=== PATIENT | female | born 2000 | race Caucasian/White ===

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

== ENCOUNTER 2022-06-14 16:06 | Emergency (ER) | payer OTHER, SELFPAY ==
--- NOTE | 2022-06-14 16:13 | ED.URI ---
HPI - URI/Sore Throat General Chief Complaint: Upper Respiratory Infection Stated Complaint: Sore Throat Time Seen by Provider: 06/14/22 16:13 Source: patient and RN notes reviewed History of Present Illness HPI Narrative: patient is a 22-year-old female who presents to urgent care with complaints of sore throat and swollen glands. Patient states that she had a mild sore throat and then ate Twix bar and was concerned about it having peanuts. Patient denies any difficulty swallowing, breathing or chest tightness. Patient denies any recent fevers. No other acute complaints. No acute distress noted. Patient aware of care. Some parts of this dictation were generated by voice recognition software and may contain typographical and/or grammatical inaccuracies. Related Data Home Medications Medication Instructions Recorded Confirmed norgestimate 0.25 mg-ethinyl 1 tablet PO DAILY 06/23/21 06/14/22 estradiol 35 mcg tablet (Estarylla) Allergies Allergy/AdvReac Type Severity Reaction Status Date / Time amoxicillin Allergy Unknown HIVES Verified 06/14/22 16:30 peanut Allergy Unknown SHORTNESS Verified 06/14/22 16:30 OF BREATH Penicillins Allergy Hives Verified 06/14/22 16:30 Review of Systems Review of Systems: CONSTITUTIONAL: Denies fever, chills, or sweats. EYES: Denies visual changes, redness, or discharge. ENT: Denies rhinorrhea, congestion, Otalgia. Reports of sore throat CARDIOVASCULAR: Denies chest pain, palpitations, or edema. RESPIRATORY: Denies cough or dyspnea. GASTROINTESTINAL: Denies abdominal pain, nausea, vomiting, or diarrhea. GENITOURINARY: Denies dysuria or hematuria. SKIN: Denies rash or itching. MUSCULOSKELETAL: Denies back pain, joint pain, or myalgia. NEUROLOGIC: Denies headache, numbness, or weakness. All other systems reviewed are negative, except as documented in HPI. [facility] Past Medical History Medical History Strep pharyngitis UTI (urinary tract infection) Surgical History Surgical History No pertinent past surgical history Family History Family History (Updated 06/23/21 @ 15:28 by Aggie Smith APRN) Other No significant family history Social History Social History Smoking status: Never smoker Alcohol intake: never Substance use: never Additional occupation/education comments: works at [employer] Gender identity (if verbalized by the patient): Female Comments At the time of my signature, I reviewed and agree with the nursing past medical, surgical, social, and family history. There is no relevant family history pertinent to the patient complaint. Exam Narrative: GENERAL: This is a well-nourished, well-developed patient, in no apparent distress. HEAD: normocephalic, atraumatic. EYES: PERRL. Sclera clear/white. Vision is grossly intact. EARS: External ears normal NOSE: External nose normal with no obvious nasal discharge, nares without redness, no rhinorrhea. THROAT: Mucous membranes moist, posterior pharynx clear. mild postnasal drainage. Patent airway. NECK: Neck supple, non-tender without lymphadenopathy CARDIOVASCULAR: Regular rate and rhythm without murmurs, gallops, or rubs. RESPIRATORY: Clear to auscultation. Breath sounds equal bilaterally. No wheezes, rales, or rhonchi. SKIN: warm, intact with no suspicious lesions or rash, good texture and turgor. NEURO: awake, alert, and oriented to person, place and time. There were no obvious focal neurologic abnormalities. EXTREMITIES: No clubbing, cyanosis, or edema. Course Course Level of Care: Express Care Visit Vital Signs Vital signs: Vital Signs Temperature 98.5 F 06/14/22 16:28 Pulse Rate 88 06/14/22 16:28 Respiratory Rate 18 06/14/22 16:28 Blood Pressure 133/71 06/14/22 16:28 Pulse Oximetry 100 05/19
[2022-06-14 16:28] VITALS: BP 133/71; PULSE 88; RESP 18; TEMP 36.9; O2SAT 100
== END 2022-06-14 17:10 | disposition home or self-care (01) ==
PROVIDERS: Emergency Provider Nurse Practitioner Family
DX: J02.9 Acute pharyngitis, unspecified (principal)
CPT/HCPCS: 87081; 87880; 99213; G0463

== ENCOUNTER 2022-08-05 12:47 | Emergency (ER) | payer OTHER, SELFPAY ==
--- NOTE | ~2022-08-05 | XR_ITS ---
XR cervical spine 4-5V 08/05/2022 14:15 Indication: Posterior C7 pain after lifting injury Procedure: 5 views cervical spine Comparison: No prior studies for comparison. Findings: Normal cervical alignment. Vertebral body and disc heights are preserved. No acute fracture or traumatic malalignment. Odontoid process is normal. Lateral masses normally aligned. Lung apices are normal. Impression: 1: No acute abnormality of the cervical spine. Reviewed, dictated and finalized at location A. [employer] Impression: 1: No acute abnormality of the cervical spine.
[2022-08-05 12:52] VITALS: BP 129/73; PULSE 99; RESP 16; TEMP 37.4; O2SAT 100
--- NOTE | 2022-08-05 14:03 | ED.GENADULT ---
HPI - General Adult General Chief complaint: Back Pain/Injury Stated complaint: Back Injury Source: patient Mode of arrival: ambulatory Limitations: no limitations History of Present Illness HPI narrative: Patient presents for evaluation of neck pain since yesterday. 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 She rates her pain 5/10 at rest but 7/10 with movement and palpation. She states she has some numbness in her scapular regions bilaterally. No radiation down the upper extremities. She has tried taking 400 mg of ibuprofen for symptoms with mild improvement in her symptoms thereafter. Related Data Home Medications Medication Instructions Recorded Confirmed norgestimate 0.25 mg-ethinyl 1 tablet PO DAILY 06/23/21 08/05/22 estradiol 35 mcg tablet (Estarylla) Allergies Allergy/AdvReac Type Severity Reaction Status Date / Time amoxicillin Allergy Unknown HIVES Verified 08/05/22 13:51 peanut Allergy Unknown SHORTNESS Verified 08/05/22 13:51 OF BREATH Penicillins Allergy Hives Verified 08/05/22 13:51 Review of Systems Review of Systems: CONSTITUTIONAL: Denies fever, chills, or sweats. EYES: Denies visual changes, redness, or discharge. ENT: Denies rhinorrhea, congestion, sore throat, or otalgia. CARDIOVASCULAR: Denies chest pain, palpitations, or edema. RESPIRATORY: Denies cough or dyspnea. GASTROINTESTINAL: Denies abdominal pain, nausea, vomiting, or diarrhea. GENITOURINARY: Denies dysuria or hematuria. SKIN: Denies rash or itching. MUSCULOSKELETAL: Reports neck pain NEUROLOGIC: Reports numbness and tingling in scapular regions bilaterally. Denies headache, dizziness, or weakness. PSYCHIATRIC: Denies anxiety or depression. [facility] Past Medical History Medical History Strep pharyngitis UTI (urinary tract infection) Surgical History Surgical History No pertinent past surgical history Family History Family History Other No significant family history Social History Social History Smoking status: Never smoker Alcohol intake: never Substance use: never Living arrangements: with family Occupation/Education: student Additional occupation/education comments: works at [employer] Gender identity (if verbalized by the patient): Female Exam Narrative: GENERAL: Well-appearing, well-nourished, and in no acute distress. HEAD: Normocephalic, atraumatic. EYES: PERRLA and EOMI. ENT: Nares clear, no rhinorrhea or epistaxis. Mucous membranes moist. Oropharynx without tonsillar hypertrophy exudate or other lesions. Bilateral TMs pearly mendez nonbulging NECK: Supple. No adenopathy or masses. No carotid bruits or JVD. There is tenderness at the midline of the distal aspect of the cervical spine without tenderness in the paraspinous muscles CHEST: Clear to auscultation. No respiratory distress. No wheezes rales or rhonchi HEART: Regular rate and rhythm. No murmur heard. Normal peripheral pulses. ABDOMEN: Soft, nontender, nondistended, normal active bowel sounds. EXTREMITIES: Normal range of motion. No edema. SKIN: Warm, dry, no rash. NEURO: No focal deficits. Alert and oriented x3. PSYCH: Normal mood and affect. Course Course Emergency Course: This is a 22-year-old female who presented for evaluation of neck pain. X-ray was negative for fracture. Exam is consistent with strain. I did offer to prescribe her a muscle relaxer and 800 mg ibuprofen. She declined. She will take ibuprofen [id number]. Warm moist heat may help. Icy Hot may help. Follow up with primary provider. Go to the ER for worsening symptoms. Patient in agreement with plan of care. Level of Care: Express Care Visit Sammie
== END 2022-08-05 14:30 | disposition home or self-care (01) ==
PROVIDERS: Emergency Provider Nurse Practitioner; PCP Emergency Medicine
DX: S16.1XXA Strain of muscle, fascia and tendon at neck level, initial encounter (principal); X50.0XXA Overexertion from strenuous movement or load, initial encounter; Y99.0 Civilian activity done for income or pay
CPT/HCPCS: 72050; 99213; G0463

== ENCOUNTER 2023-02-01 12:59 | Emergency (ER) | payer OTHER, SELFPAY ==
[2023-02-01 13:07] VITALS: BP 128/72; PULSE 72; RESP 18; TEMP 36.9; O2SAT 100
--- NOTE | 2023-02-01 13:46 | ED.URI ---
HPI - URI/Sore Throat General Chief Complaint: Upper Respiratory Infection Stated Complaint: sore throat Time Seen by Provider: 02/01/23 13:27 Source: patient, RN notes reviewed and old records reviewed Mode of arrival: ambulatory Limitations: no limitations History of Present Illness HPI Narrative: 22 year old female who presents to [facility] care with complaints of sore throat since yesterday with increased symptoms today. patient reports that she has not had any known fevers, chills or sweats or cough, reports that she has had strep throat in the past approximately one year ago.Patient reports that she did have a bloody nose last evening which is unusual for her. Patient reports that she has taken some Tylenol for her symptoms. MD elicited complaint: sore throat Onset (ago): day(s) (day 2 of symptoms) Pain scale (0-10): 6 Able to tolerate fluids by mouth: Yes Exacerbating factors: swallowing Treatments prior to arrival: acetaminophen Related Data Home Medications Medication Instructions Recorded Confirmed norgestimate 0.25 mg-ethinyl 1 tablet PO DAILY 06/23/21 02/01/23 estradiol 35 mcg tablet (Estarylla) Allergies Allergy/AdvReac Type Severity Reaction Status Date / Time amoxicillin Allergy Unknown HIVES Verified 02/01/23 13:18 peanut Allergy Unknown SHORTNESS Verified 02/01/23 13:18 OF BREATH Penicillins Allergy Hives Verified 02/01/23 13:18 Review of Systems Review of Systems: CONSTITUTIONAL: Denies malaise, chills, sweats, or fever. EYES: Denies visual changes, redness, or discharge. ENT: Reports rhinorrhea, congestion, no sinus pain,no otalgia, positive sore throat. CARDIOVASCULAR: Denies chest pain, palpitations, or edema. RESPIRATORY: Reports no cough.? Denies dyspnea. GASTROINTESTINAL: Denies abdominal pain, nausea, vomiting, diarrhea SKIN: Denies rash or itching. MUSCULOSKELETAL: Denies myalgia. NEUROLOGIC: Denies headache. All systems reviewed & are unremarkable except as noted in HPI and below PMFSH Past Medical History Medical History Strep pharyngitis UTI (urinary tract infection) Surgical History Surgical History No pertinent past surgical history Family History Family History Other No significant family history Social History Social History Smoking status: Never smoker Alcohol intake: never Substance use: never Living arrangements: with family Occupation/Education: student Additional occupation/education comments: works at [employer] Gender identity (if verbalized by the patient): Female Comments At time of signature, agree with nursing past medical, surgical, social and family history. There is no relevant family history pertinent to the presenting complaint Exam Narrative: GENERAL: Well-appearing, well-nourished, and in no acute distress. HEAD: Normocephalic EYES: PERRLA, conjunctivae clear ENT: Nares clear, turbinates edematous and erythematous, clear discharge. Mucous membranes moist. TM pearly mendez with dull light reflex bilaterally; no tragal tenderness. Oropharynx erythematous without lesions. Tonsils red enlarged and without exudate, no drooling, no hoarseness, no trismus, uvula midline. NECK: Supple. lymphadenopathy CHEST: Clear to auscultation, breath sounds equal. No wheezing, rhonchi, rales, or stridor. No respiratory distress, speaks in full sentences. HEART: Regular rate and rhythm. No murmur heard. SKIN: Warm, dry, no rash. NEURO: Alert and oriented x3. PSYCH: Normal mood and affect Course Course Emergency Course: Patient is aware of diagnosis, understands and agrees to treatment plan.? Anticipatory guidance given.? Patient agrees to follow-up as directed and is aware of reasons
== END 2023-02-01 14:00 | disposition home or self-care (01) ==
PROVIDERS: Emergency Provider Registered Nurse
DX: J02.0 Streptococcal pharyngitis (principal)
CPT/HCPCS: 87880; 99213; G0463

== ENCOUNTER 2023-10-04 12:26 | Emergency (ER) | payer OTHER, SELFPAY ==
[2023-10-04 12:35] VITALS: BP 133/89; PULSE 75; RESP 16; TEMP 37.4; O2SAT 100
--- NOTE | 2023-10-04 19:15 | ED.GENADULT ---
HPI - General Adult General Chief complaint: Headache Stated complaint: Headache Source: patient, RN notes reviewed and old records reviewed Mode of arrival: ambulatory Limitations: no limitations History of Present Illness HPI narrative: 23-year-old female to [facility] for complaint left frontal and occipital headache that started yesterday along with left ear discomfort. Patient sources that she had cold symptoms 1 week ago that had resolved. Patient endorses allergy to amoxicillin and clindamycin. Patient has attempted to treat at home with Motrin, DayQuil, Tylenol with mild relief. Patient denies fever, visual changes, nausea, vomiting, migraine history. Patient in no acute distress in exam room. Patient able to tolerate fluids by mouth Related Data Home Medications Medication Instructions Recorded Confirmed norgestimate 0.25 mg-ethinyl 1 tablet PO DAILY 06/23/21 02/01/23 estradiol 35 mcg tablet (Estarylla) Allergies Allergy/AdvReac Type Severity Reaction Status Date / Time amoxicillin Allergy Unknown HIVES Verified 02/01/23 13:18 peanut Allergy Unknown SHORTNESS Verified 02/01/23 13:18 OF BREATH Penicillins Allergy Hives Verified 02/01/23 13:18 Review of Systems Review of Systems: All systems reviewed & are unremarkable except as noted in HPI and below Constitutional: Constitutional: Reports as per HPI and Reports headache(s) Eyes: Eyes: Reports no additional eye complaints ENT: Reports as per HPI and Reports otalgia ( left) Cardiovascular: Cardiovascular: Reports no additional cardiovascular complaints, Denies chest pain and Denies dyspnea Respiratory: Respiratory: Reports no additional respiratory complaints, Denies cough and Denies dyspnea Musculoskeletal: Musculoskeletal: Reports no additional musculoskeletal complaints Neurologic: Reports system reviewed and no additional complaints, except as documented Psychiatric: Psychiatric: Reports no additional psychiatric complaints [facility] Past Medical History Medical History Strep pharyngitis UTI (urinary tract infection) Surgical History Surgical History No pertinent past surgical history Family History Family History Other No significant family history Social History Social History Smoking status: Never smoker Alcohol intake: never Substance use: never Living arrangements: with family Occupation/Education: student Additional occupation/education comments: works at [employer] Gender identity (if verbalized by the patient): Female Comments At the time of my signature, I reviewed and agree with the nursing past medical, surgical, social, and family history. There is no relevant family history pertinent to the patient complaint. Exam Const: General: cooperative, healthy appearing, comfortable, no acute distress, alert and well nourished Nutritional Appearance: well nourished Orientation/consciousness: patient oriented x3 Limitations: no limitations HENMT: Head: normal to inspection Ears: external ears normal, Abnormal EAC present EAC tenderness on the left and TM abnormal with fluid behind the TM bilateral and diffuse Face/Nose/Sinus: Normal external nose present, Normal nares present, normal facial exam, No erythema, No edema and sinus tenderness Face and sinus: normal facial exam, no erythema and no edema Mouth: Yes Normal oral and palatal mucosa present Throat: uvula midline, posterior oropharynx abnormal erythema, postnasal drainage and no uvular edema Eyes: General: appearance normal, both eyes and all related structures Neck: Neck: normal visual inspection, full ROM and no meningeal signs Lymphatic: no lymphadenopathy noted and no lymphedema noted Chest: Ch
== END 2023-10-04 13:14 | disposition home or self-care (01) ==
PROVIDERS: Emergency Provider Nurse Practitioner Family
DX: J01.10 Acute frontal sinusitis, unspecified (principal)
CPT/HCPCS: 99213; G0463

== ENCOUNTER 2023-10-19 10:30 | Emergency (ER) | payer OTHER, SELFPAY ==
[2023-10-19 10:37] VITALS: BP 130/79; PULSE 78; RESP 18; TEMP 37.8; O2SAT 100
--- NOTE | 2023-10-19 10:41 | ED.EAR ---
HPI - Ear Problem General Stated complaint: congestion/headache Source: patient Mode of arrival: ambulatory Limitations: no limitations History of Present Illness HPI Narrative: 23 y/o female presented for c/o nasal drainage, left ear pressure, and left sided headaches for 2 days. Using Flonase at times. Denies decreased hearing, tinnitus, dizziness, n/v/d/f/c. States family has had similar symptoms. Pt was seen for similar symptoms 10/03 and prescribed clinda for sinusitis. Reports improvement x5 days. Complaint: ear pain Related Data Home Medications Medication Instructions Recorded Confirmed norgestimate 0.25 mg-ethinyl 1 tablet PO DAILY 06/23/21 02/01/23 estradiol 35 mcg tablet (Estarylla) Allergies Allergy/AdvReac Type Severity Reaction Status Date / Time amoxicillin Allergy Unknown HIVES Verified 02/01/23 13:18 peanut Allergy Unknown SHORTNESS Verified 02/01/23 13:18 OF BREATH Penicillins Allergy Hives Verified 02/01/23 13:18 Review of Systems Review of Systems: CONSTITUTIONAL: Denies malaise, chills, or fever. EYES: Denies visual changes, redness, or discharge. ENT: Reports ear pain, rhinorrhea, congestion CARDIOVASCULAR: Denies chest pain, palpitations, or edema. RESPIRATORY: Denies cough or dyspnea. GASTROINTESTINAL: Denies abdominal pain, nausea, vomiting, diarrhea SKIN: Denies rash or itching. MUSCULOSKELETAL: Denies myalgia. NEUROLOGIC: reports headache. All systems reviewed & are unremarkable except as noted in HPI and below PMFSH Past Medical History Medical History Strep pharyngitis UTI (urinary tract infection) Surgical History Surgical History No pertinent past surgical history Family History Family History Other No significant family history Social History Social History Smoking status: Never smoker Alcohol intake: never Substance use: never Living arrangements: with family Occupation/Education: student Additional occupation/education comments: works at [employer] Gender identity (if verbalized by the patient): Female Comments At time of signature, agree with nursing past medical, surgical, social and family history. There is no relevant family history pertinent to the presenting complaint Exam Narrative: GENERAL: Well-appearing EYES: PERRLA, conjunctivae clear ENT: Nares clear. Mucous membranes moist. TMs pearly mendez with normal light reflex bilaterally; no tragal tenderness. Oropharynx not erythematous without lesions. Tonsils not enlarged and without exudate, no drooling, no hoarseness, no trismus, uvula midline. NECK: Supple. No lymphadenopathy CHEST: Clear to auscultation, breath sounds equal. HEART: Regular rate and rhythm. No murmur heard. SKIN: Warm, dry, no rash. NEURO: Alert and oriented x3. PSYCH: Normal mood and affect Course Course Emergency Course: Patient is aware of diagnosis, understands and agrees to treatment plan. Anticipatory guidance given. Patient agrees to follow-up as directed and is aware of reasons to seek care at the emergency department. Portions of this record may have been created with voice recognition software Level of Care: Express Care Visit Vital Signs Vital signs: Reviewed Medical Decision Making MDM Narrative Medical decision making narrative: Discussed physical exam findings, no indication for abx at this time. Advised supportive measures and signs/symptoms to go to the ER. Patient is appropriate for outpatient treatment and follow-up. Differential Diagnosis Differential Diagnosis: Coronavirus, strep pharyngitis, allergic rhinitis, upper respiratory tract infection, sinusitis, rhinosinusitis, nasopharyngitis, viral pharyngitis, otitis media, otitis externa, eustachian tube
== END 2023-10-19 11:05 | disposition home or self-care (01) ==
PROVIDERS: Emergency Provider Nurse Practitioner Family; PCP Family Medicine
DX: J06.9 Acute upper respiratory infection, unspecified (principal)
CPT/HCPCS: 99211; G0463

== ENCOUNTER 2024-01-05 13:17 | Emergency (ER) | payer OTHER, SELFPAY ==
[2024-01-05 13:22] VITALS: BP 140/82; PULSE 86; RESP 16; TEMP 37.4; O2SAT 100
--- NOTE | 2024-01-05 13:44 | ED.URI ---
HPI - URI/Sore Throat General Chief Complaint: Upper Respiratory Infection Stated Complaint: throat Time Seen by Provider: 01/05/24 13:44 Source: patient, RN notes reviewed and old records reviewed Mode of arrival: ambulatory Limitations: no limitations History of Present Illness HPI Narrative: 23-year-old female to [facility] Care for complaint of sore throat for 1 day. Patient endorses history of chronic strep throat. States she had tonsillectomy scheduled approximately 3 years ago and canceled because she got nervous. Patient endorses last episode approximately 6 months ago. Patient denies fever. Patient reports slight nasal drainage. Patient has attempted to treat at home with Zyrtec without relief. Patient able tolerate fluids by mouth. Respirations even and nonlabored. Patient in no acute distress Related Data Home Medications Medication Instructions Recorded Confirmed norgestimate 0.25 mg-ethinyl 1 tablet PO DAILY 06/23/21 02/01/23 estradiol 35 mcg tablet (Estarylla) Allergies Allergy/AdvReac Type Severity Reaction Status Date / Time amoxicillin Allergy Unknown HIVES Verified 02/01/23 13:18 peanut Allergy Unknown SHORTNESS Verified 02/01/23 13:18 OF BREATH Penicillins Allergy Hives Verified 02/01/23 13:18 Review of Systems Review of Systems: All systems reviewed & are unremarkable except as noted in HPI and below Constitutional: Constitutional: Reports no additional constitutional complaints Eyes: Eyes: Reports no additional eye complaints ENT: Reports as per HPI, Reports nasal discharge ( Clear per patient) and Reports sore throat Cardiovascular: Cardiovascular: Reports no additional cardiovascular complaints, Denies chest pain and Denies dyspnea Respiratory: Respiratory: Reports no additional respiratory complaints, Denies cough and Denies dyspnea Musculoskeletal: Musculoskeletal: Reports no additional musculoskeletal complaints Neurologic: Reports system reviewed and no additional complaints, except as documented Psychiatric: Psychiatric: Reports no additional psychiatric complaints [facility] Past Medical History Medical History Strep pharyngitis UTI (urinary tract infection) Surgical History Surgical History No pertinent past surgical history Family History Family History Other No significant family history Social History Social History Smoking status: Never smoker Alcohol intake: never Substance use: never Living arrangements: with family Occupation/Education: student Additional occupation/education comments: works at [employer] Gender identity (if verbalized by the patient): Female Comments At the time of my signature, I reviewed and agree with the nursing past medical, surgical, social, and family history. There is no relevant family history pertinent to the patient complaint. Exam Const: General: cooperative, healthy appearing, no acute distress, alert, uncomfortable and well nourished Nutritional Appearance: well nourished Orientation/consciousness: patient oriented x3 Limitations: no limitations HENMT: Head: normal to inspection Ears: external ears normal Face/Nose/Sinus: Normal external nose present, Normal nares present, normal facial exam, No erythema and No edema Face and sinus: normal facial exam, no erythema and no edema Mouth: Yes Normal oral and palatal mucosa present Throat: uvula midline, abnormal tonsil bilateral hypertrophy 2+, posterior oropharynx abnormal erythema and exudates and no uvular edema Eyes: General: appearance normal, both eyes and all related structures Neck: Neck: normal visual inspection, full ROM and no meningeal signs Lymphatic: no lymphadenopathy noted and no lymphedema note
== END 2024-01-05 13:47 | disposition home or self-care (01) ==
PROVIDERS: Emergency Provider Nurse Practitioner Family
DX: J02.0 Streptococcal pharyngitis (principal)
CPT/HCPCS: 87880; 99213; G0463

== ENCOUNTER 2024-04-28 16:59 | Emergency (ER) | payer OTHER, SELFPAY ==
[2024-04-28 17:00] VITALS: BP 129/77; PULSE 84; RESP 18; TEMP 37.2; O2SAT 100
--- NOTE | 2024-04-28 17:33 | ED.URI ---
HPI - URI/Sore Throat General Chief Complaint: Upper Respiratory Infection Stated Complaint: throat History of Present Illness HPI Narrative: 24-year-old female presented for complaint of sore throat. Onset this morning. Denies any associated symptoms or difficulty maintaining secretions. states she gets strep throat often, and this feels the same. Took Tylenol for symptoms. Related Data Home Medications Medication Instructions Recorded Confirmed norgestimate 0.25 mg-ethinyl 1 tablet PO DAILY 06/23/21 02/01/23 estradiol 35 mcg tablet (Estarylla) Allergies Allergy/AdvReac Type Severity Reaction Status Date / Time amoxicillin Allergy Unknown HIVES Verified 02/01/23 13:18 peanut Allergy Unknown SHORTNESS Verified 02/01/23 13:18 OF BREATH Penicillins Allergy Hives Verified 02/01/23 13:18 Review of Systems Review of Systems: CONSTITUTIONAL: Denies body aches, fever, chills, or sweats. EYES: Denies visual changes, redness, or discharge. ENT: reports sore throat Denies rhinorrhea, congestion, or otalgia. CARDIOVASCULAR: Denies chest pain, palpitations, or edema. RESPIRATORY: Denies dyspnea. GASTROINTESTINAL: Denies abdominal pain, nausea, vomiting, or diarrhea. SKIN: Denies rash, itching, or wounds. MUSCULOSKELETAL: Denies back pain, joint pain, or myalgia. NEUROLOGIC: Denies headache PMFSH Past Medical History Medical History Strep pharyngitis UTI (urinary tract infection) Surgical History Surgical History No pertinent past surgical history Family History Family History Other No significant family history Social History Social History Smoking status: Never smoker Alcohol intake: never Substance use: never Living arrangements: with family Occupation/Education: student Additional occupation/education comments: works at [employer] Gender identity (if verbalized by the patient): Female Exam Narrative: GENERAL: well-appearing, no acute distress. EYES: conjunctivae clear ENT: Mucous membranes moist. TM pearly mendez with normal light reflex bilaterally; no tragal tenderness. Oropharynx mildly erythematous without lesions. Tonsils not enlarged and without exudate. No drooling, no hoarseness, no trismus, uvula midline. No tripod positioning, hot potato voice, or soft palate swelling. NECK: Supple. No lymphadenopathy CHEST: Clear to auscultation, breath sounds equal. No respiratory distress, speaks in full sentences. HEART: Regular rate and rhythm. No murmur heard. SKIN: Warm, dry, no rash. NEURO: Alert and oriented x3. Course Course Emergency Course: Patient is aware of diagnosis, understands and agrees to treatment plan. Anticipatory guidance given. Patient agrees to follow-up as directed and is aware of reasons to seek care at the emergency department. Portions of this record may have been created with voice recognition software Level of Care: Express Care Visit Vital Signs Vital signs: Vital Signs Temperature 98.9 F 04/28/24 17:00 Pulse Rate 84 04/28/24 17:00 Respiratory Rate 18 04/28/24 17:00 Blood Pressure 129/77 04/28/24 17:00 Pulse Oximetry 100 04/28/24 17:00 Oxygen Delivery Room Air 04/28/24 17:00 Temperature 98.9 F 04/28/24 17:00 Pulse Rate 84 04/28/24 17:00 Respiratory Rate 18 04/28/24 17:00 Blood Pressure 129/77 04/28/24 17:00 Pulse Oximetry 100 04/28/24 17:00 Oxygen Delivery Room Air 04/28/24 17:00 MDM - URI/Sore Throat MDM Narrative Medical decision making narrative: POS strep result reviewed with pt. Advise supportive treatments. Patient is appropriate for outpatient treatment and follow-up. Differential Diagnosis Differential diagnosis: Likely upper respiratory infection, viral infection and pharyngitis Discharge Plan Discharge Clinical Impression: Strep pharyngitis Patient Disposition: Home, Self-Care Condition: Stable Instructions: Antibiotic Form, Strep Throat (ED) Additional Instructions: - Take the antibiotic as directed. Fever and sore throat typically resolve within one to three days. Most patients can return to work after 12 to 24 hours of antibiotic therapy, provided you are fever free and otherwise well. -Eat and drink things that are easy to swallow, like soft foods, cool liquids, tea with honey, or popsicles . -Salt water gargles and/or may use topical anesthetic ( Chloraseptic spray) or lozenges to relieve dryness or throat pain -Alternate Tylenol and ibuprofen as needed for pain and fever as directed. -Frequent hand washing or hand materials coordinator is one of the best ways to prevent spread of infection. Throw away the toothbrush after 24hours of antibiotic. -Follow up with primary care provider in 2-3 days if condition is not improving -Go to the ER if you have trouble breathing, cannot drink enough fluids, have muffled voice or drooling, difficulty opening your mouth, or severe swelling. Prescriptions: New clindamycin HCl [Cleocin HCl] 300 mg capsule 300 mg PO Q8H 10 Days Qty: 30 0RF No Action norgestimate-ethinyl estradiol [Estarylla] 0.25-35 mg-mcg tablet 1 tablet PO DAILY Follow-up/Referrals: PHYSICIAN NOT ON STAFF,NONSTAFF [Primary Care Provider] - Time of Disposition: 17:37
[2024-04-28 17:38] LABS: EDSTREPNEGPOS1 Positive (Negative)
== END 2024-04-28 17:40 | disposition home or self-care (01) ==
PROVIDERS: Emergency Provider Nurse Practitioner Family
DX: J02.0 Streptococcal pharyngitis (principal)
CPT/HCPCS: 87880; 99213; G0463

== ENCOUNTER 2024-07-30 12:07 | Emergency (ER) | payer OTHER, SELFPAY ==
[2024-07-30 12:14] VITALS: BP 141/86; PULSE 126; RESP 18; TEMP 38; O2SAT 100
--- OUTSIDE RECORDS SUMMARY | 2024-07-30 12:25 | XMS_ITS | Encounter Summary ---
Author Organization [facility] Address [address] [place] [address] Phone Care Team Providers Care Color Technician Name Role Phone iMna Arora MD Primary Care Provider [phone] Unknown, Notinfile Primary Care Provider Unavail able Aashish Davidson MD Primary Care Provider [phone] Encounter Details Date Type Department Care Team (Late st Contact Info) Description 02/22/2017 Orders Only [facility] [address] [place] [address] Sherron Ruiz RN Social History Tobacco Use Types Packs/Day Years Used Date Smoking Tobacco: Never Assessed Comments Unknown Sex and Gender Information Value Date Recorded Sex Assigned at Not on file 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 Gender Identity Not on file Sexual Orientation Not on file documented as of this encounter Ordered Prescriptions Prescription Sig Dispense Quantity Refills Last Filled Start Date End Date azithromycin (ZITHROMAX) 40 mg/mL suspension Give 12.5 milliliters once a day for 5 days 62.5 mL 02/22/2017 2 documented in this encounter Plan of Treatment Not on file documented as of this encounter Visit Diagnoses Not on filedocumented in this encounter Care Teams Color Technician Relationship Specialty Start Date End Date Mina Arora MD [address] [place] [address] PCP - General 11/03/13 06/29/21 Unknown, Notinfile PCP - General 06/30/21 07/03/21 Aashish Davidson MD [address] [place] [address] PCP - General Family Medicine 07/04/21 documented as of this encounter
--- OUTSIDE RECORDS SUMMARY | 2024-07-30 12:25 | XMS_ITS | Referral Summary ---
Author Organization [facility] [address] Address [address] [place] [address] Phone Care Team Providers Care Senior Quality Analyst Name Role Phone Aashish Davidson MD Primary Care Provider [phone] Allergies Active Allergy Reactions Criticality Noted Date Comments Amoxicillin Hives High 02/20/2017 Cephalexin Rash Medium 06/22/2017 06-04-17 tx for strep day 7 Peanut Unknown,Shortness of breath High 07/04/2021 Penicillins Rash,Hives Medium 07/04/2021 Medications norgestimate-eth inyl estradioL (Estarylla) 0.25-35 mg-mcg per tablet Take 1 tablet by mouth daily 28 tablet 12 03/17/2024 Active Active Problems Problem Noted Date Diagnosed Date Colicky RUQ abdominal pain 04/15/2024 Assessment & Plan (04/15/2024 1:54 PM CDT): Benign exam today. Will obtain gallbladder sono. Can consider HIDA scan. Also consider referral to GI for food allergy testing. Continue monitoring with food diary. She is in agreement with plan and states understanding. Hospital discharge follow-up 04/15/2024 Assessment & Plan (04/15/2024 1:56 PM CDT): Lianet Kinsey NP have personally reviewed pertinent inpatient and/or ED records, including discharge medications and Cl[employer]esk if applicable. This patient's discharge medication list has been reviewed and reconciled with her outpatient medication list and has also been reviewed with patient and/or caregiver. I have noted any changes. Cervical strain 02/27/2024 Upper respiratory infection 02/27/2024 BMI 23.0-23.9, adult 07/04/2021 Assessment & Plan (07/04/2021 9:30 AM EQUIPMENT SPECIALIST): BMI is acceptable for this patient. Encounter for medical examination to establish c are 07/04/2021 Assessment & Plan (07/04/2021 1:00 PM EQUIPMENT SPECIALIST): Preventive exam; reviewed recommended preventive screenings and vaccinations. Cervical cancer screening @23. Follows with gynecology. Encouraged annual flu and covid vaccine.Wear sunscreen/protective clothing when outdoors. Refused influenza vaccine 07/04/2021 Recurrent streptococcal tonsillitis 07/04/2021 Assessment & Plan (09/12/2021 3:22 PM CDT): Plan tonsillectomy and adenoidectomy. - Discussed risks, benefits, and alternatives. Reviewed risks, including anesthesia, pain, bleeding, injury to lips, teeth, gums and tongue, dehydration, scarring, velopharyngeal insufficiency, voice changes, regrowth of tissue. - Reviewed postoperative care: 1-2 weeks off school/daycare, and 2 weeks of light activity and soft diet, with emphasis on fluid hydration, red or purple coloring, straws and dairy are fine to drink. - informational paperwork, including description of surgery, risks, and postop care provided All questions were answered and they would like to proceed. Assessment & Plan (07/04/2021 1:02 PM EQUIPMENT SPECIALIST): Patient reports strep throat infections occurring every 3-4 months for the past several years. Would like to discuss tonsillectomy, ENT referral placed. Pharyngitis 07/04/2021 Assessment & Plan (07/04/2021 1:06 PM EQUIPMENT SPECIALIST): Reports ongoing sore throat and fever following strep diagnosis and partial treatment with clindamycin. Will treat with azithromycin and monitor response. Reviewed red flags warranting immediate follow up. -discard toothbrush -sanitize eating utensils and water bottles Strep pharyngitis 02/12/2017 Overview (02/22/2017): 02-12-17 amox HIVES then Zithromax Immunizations Name Administration Dates Next Due Influenza, Unspecified 04/15/2024(Deferr ed: Patient Refused),04/15/2024(Deferred: Patient Refused),02/16/2023(Deferred: Patient Refused),07/04/2021(Deferred: Patient Refused),06/18/2020(Deferred: Patient Refused) Social History Tobacco Use Types Packs/Day Years Used Date Smoking Tobacco: Never Smokeless Tobacco: Never Tobacco Cessation:Counseling Given: Not Answered AUDIT-C Answer Date Recorded Q1: How often do you have a drink containing alc ohol? Never 07/04/2021 Average Number of Drinks Not on file 022 Q3: How often do you have si x or more drinks on one occasion? Never 07/04/2021 PHQ-2 Answer Date Recorded PHQ-2 Total Score (If total score is 3 or more points, staff should administer the PHQ-9) 0 04/15/2024 Personal Safety Answer Date Recorded Have you ever been in or are you currently in a harmful physical or emotional relationship or is someone making you feel afraid or unsafe? Denies 04/11/2024 Comments No Sex and Gender Information Value Date Recorded Sex Assigned at Not on file Legal Sex Female 2:35 AM EQUIPMENT SPECIALIST Gender Identity Not on file Sexual Orientation Not on file Occupation Industry Job Start Date Job End Date [employer] Not on file Not on file Not on file Last Filed Vital Signs Vital Sign Reading Time Taken Comments Blood Pressure 122/78 04/15/2024 1:25 PM CDT Pulse 72 04/15/2024 1:25 PM CDT Temperature 37.2 C (99 F) 04/15/2024 1:25 PM CDT Respiratory Rate 20 04/15/2024 1:25 PM CDT Oxygen Saturation 99% 04/15/2024 1:25 PM CDT Inhaled Oxygen Concentration - - Weight 58.2 kg (128 lb 6.4 oz) 04/15/2024 1:25 P M CDT Height 162.6 cm (5' 4.02 ) 04/15/2024 1:25 PM CD T Body Mass Index 22.03 04/15/2024 1:25 PM CDT Plan of Treatment Not on file Procedures Procedure Name Priority Date/Time Associated Diagnosis Comments PAP WITH REFLEX TO HIGH RISK HPV Routine 03/17/2024 11:12 AM CDT N. GONORRHOEAE/C. TRACHOMATIS AMPLIFICATION Routine 03/02/2023 9:59 AM CDT Screening examination for venereal disease from Last 3 Months or Most Recently Relevant to Health Maintenance Results * Pap with reflex to High Risk HPV and Genotyping (Cytology Component) (03/17/2024 11:12 AM CDT) Pap test 03/17/2024 11:1 2 AM CDT 03/17/2024 11:12 AM CDT Narrative 03/19/2024 3:49 PM CDT [facility] Department of Pathology [address] [place] [address] Final Report Note to Patients: This report may contain a detailed description of human tissue sent by a health care provider to the laboratory for pathologic evaluation. The content of this report is essential for diagnosis and may provide important critical findings. This information may be unfamiliar to patients to review without a medical professional present. It is advised that the patient review this report in the presence of a health care provider who can answer questions and explain the details. Patient Name: COLTON MONTAÑO Address: [address] [place] [address]- Gender: F : 2000 (Age: 23) Service: Location: N : [id number] [facility] #: [id number] Patient Type: [facility] SPECIMEN Taken: 03/17/2024 Received: 03/17/2024 Accessioned:: 03/18/2024 Reported: 03/19/2024 Physician(s): Kerry Heaton D.O. Diagnosis: SOURCE OF SPECIMEN Imaged Thinprep Pap Test w/ Reflex HPV - Head Of Digital Advertising & Integration Cytologic Material: STATEMENT OF ADEQUACY - Satisfactory for evaluation; endocervical/transformation zone component present GENERAL CATEGORIZATION: - Negative for intraepithelial lesion or malignancy GABBI Corado(ASCP) Report Electronically Reviewed and Signed Out By GABBI Corado(ASCP) 03/19/2024 15:49:43Specimen(s) Received: A: Imaged Thinprep Pap Test w/ Reflex HPV - Head Of Digital Advertising & Integration Cytologic Material Clinical History: Last Menstrual Period: 03/05/24 The Pap test is a screening test used to aid in the detection of cervical cancer and its precursors. It should not be the sole means by which malignant and premalignant lesions are diagnosed. Both false negative and false positive results may occur. It also has poor sensitivity for the detection of endometrial lesions and should not be used to evaluate suspected endometrial abnormalities. For these reasons it is most important to obtain Pap tests at regular intervals. The performance characteristics of some immunohistochemical stains, fluorescence in-situ hybridization tests and immunophenotyping by flow cytometry cited in this report (if any) were determined by the Surgical Pathology Department at [facility] as part of an ongoing quality head program and in compliance with federally mandated regulations drawn from the Clinical Laboratory Improvement Act of 1988 (CLIA '88). Some of these tests rely on the use of analyte specific reagents and are subject to specific labeling requirements by the US Food and Drug Administration. Such diagnostic tests may only be performed in a facility that is certified by the Department of Health and Human Services as a high complexity laboratory under CLIA '88. The FDA has determined that such clearance or approval is not necessary. This test is used for clinical purposes. It should not be regarded as investigational or for research. Nevertheless, federal rules concerning the medical use of analyte specific reagents require that the following disclaimer be attached to the report: This test was developed and its performance characteristics determined by the Surgical Pathology Department [facility]. It has not been cleared or approved by the U. S. Food and Drug Administration. Eleonora Reese DO LAB CYTOLOGY ORDERABLES Final Result * N. gonorrhoeae/C. trachomatis Amplification Urine (03/02/2023 9:59 AM CDT) C. trachomatis source Urine [facility] C. trachomatis RNA Negative Negative [facility] ROBERTSON Comment: ADDITIONAL INFORMATION This report is intended for use in clinical monitoring and management of patients. It is not intended for use in medical-legal applications. N. gonorrhoeae source Urine [facility] ROBERTSON N. gonorrhoeae RNA Negative Negative EMIL MARCELO Comment: ADDITIONAL INFORMATION This report is intended for use in clinical monitoring and management of patients. It is not intended for use in medical-legal applications. Test Performed by: [facility] [place] [address] Screw Driver Operator: Ruben Coates M.D. Ph.D.; CLIA# [id number] Urine (None) 03/02/2023 9:59 AM CDT 03/02/2023 1:59 PM CDT Eleonora Reese DO LAB MICROBIOLOGY - GENE [facility] ORDERABLES Final Result EMIL [id number] Department [place] [address] from Last 3 Months or Most Recently Relevant to Health Maintenance Insurance [facility] CHOICE PLUS [facility] CHO[facility] PLUS [facility] CHOICE PLUS Care Teams Senior Quality Analyst Relationship Specialty Start Date End Date Aashish Davidson MD [address] [place] [address] PCP - General Family Medicine 07/04/21
--- OUTSIDE RECORDS SUMMARY | 2024-07-30 12:25 | XMS_ITS | Encounter Summary ---
Author Organization [facility] Address [address] [place] [address] Phone Care Team Providers Care Game Trapper Name Role Phone Mina Arora MD Primary Care Provider [phone] Unknown, Notinfile Primary Care Provider Unavail able Aashish Davidson MD Primary Care Provider [phone] Encounter Details Date Type Department Care Team (Late st Contact Info) Description 05/31/2017 Orders Only [facility] ProviderBenedict MD [address] [place] [address] Social History Tobacco Use Types Packs/Day Years Used Date Smoking Tobacco: Never Assessed Comments Unknown Sex and Gender Information Value Date Recorded Sex Assigned at Not on file Legal Sex Female 2:35 AM CRISIS MENTAL HEALTH THERAPIST Gender Identity Not on file Sexual Orientation Not on file documented as of this encounter Plan of Treatment Not on file documented as of this encounter Procedures Procedure Name Priority Date/Time Associated Diagnosis Comments DISCHARGE LABORATORY CUMULATIVE REPORT 05/31/2017 12:00 AM CRISIS MENTAL HEALTH THERAPIST documented in this encounter Results * DISCHARGE LABORATORY CUMULATIVE REPORT (05/31/2017 12:00 AM CRISIS MENTAL HEALTH THERAPIST) Narrative 05/31/2017 12:00 AM CRISIS MENTAL HEALTH THERAPIST Ordered by an unspecified provider. Historical Provider LAB BLOOD ORDERABLES Lori l Result documented in this encounter Visit Diagnoses Not on filedocumented in this encounter Care Teams Game Trapper Relationship Specialty Start Date End Date Mina Arora MD [address] [place] [address] PCP - General 11/03/13 06/29/21 Unknown, Notinfile PCP - General 06/30/21 07/03/21 Aashish Davidson MD [address] [place] [address] PCP - General Family Medicine 07/04/21 documented as of this encounter
--- OUTSIDE RECORDS SUMMARY | 2024-07-30 12:25 | XMS_ITS | Encounter Summary ---
Author Organization [facility] Address [address] [place] [address] Phone Care Team Providers Care Buckle Attacher Name Role Phone Mina Arora MD Primary Care Provider [phone] Unknown, Notinfile Primary Care Provider Unavail able Aashish Davidson MD Primary Care Provider [phone] Encounter Details Date Type Department Care Team (Late st Contact Info) Description 09/03/2017 Orders Only [facility] ProviderBenedict MD [address] [place] [address] Social History Tobacco Use Types Packs/Day Years Used Date Smoking Tobacco: Never Assessed Comments Unknown Sex and Gender Information Value Date Recorded Sex Assigned at Not on file Legal Sex Female 2:35 AM POWER MARKETER Gender Identity Not on file Sexual Orientation Not on file documented as of this encounter Plan of Treatment Not on file documented as of this encounter Procedures Procedure Name Priority Date/Time Associated Diagnosis Comments DISCHARGE LABORATORY CUMULATIVE REPORT 09/03/2017 12:00 AM CDT documented in this encounter Results * DISCHARGE LABORATORY CUMULATIVE REPORT (09/03/2017 12:00 AM CDT) Narrative 09/03/2017 12:00 AM CDT Ordered by an unspecified provider. Historical Provider LAB BLOOD ORDERABLES Lori l Result documented in this encounter Visit Diagnoses Not on filedocumented in this encounter Care Teams Buckle Attacher Relationship Specialty Start Date End Date Mina Arora MD [address] [place] [address] PCP - General 11/03/13 06/29/21 Unknown, Notinfile PCP - General 06/30/21 07/03/21 Aashish Davidson MD [address] [place] [address] PCP - General Family Medicine 07/04/21 documented as of this encounter
--- OUTSIDE RECORDS SUMMARY | 2024-07-30 12:26 | XMS_ITS | Clinical Summary ---
Author Organization [facility] [address] Address [address] [place] [address] Phone Care Team Providers Care Bottle Selector Name Role Phone Aashish Davidson MD Primary Care Provider [phone] Allergies Active Allergy Reactions Criticality Noted Date [...] 07/04/2021 Assessment & Plan (07/04/2021 9:30 AM MANAGER STRATEGIC SOURCING): BMI is acceptable for this patient. Encounter for medical examination to establish c are 07/04/2021 Assessment & Plan (07/04/2021 1:00 PM MANAGER STRATEGIC SOURCING): Preventive exam; reviewed recommended preventive screenings and [...] proceed. Assessment & Plan (07/04/2021 1:02 PM MANAGER STRATEGIC SOURCING): Patient reports strep throat infections occurring every 3-4 months for the past several years. Would like to discuss tonsillectomy, ENT referral placed. Pharyngitis 07/04/2021 Assessment & Plan (07/04/2021 1:06 PM MANAGER STRATEGIC SOURCING): Reports ongoing sore throat and fever following strep diagnosis and partial treatment with clindamycin. Will treat with azithromycin and monitor response. Reviewed red flags warranting immediate follow up. -discard toothbrush -sanitize eating utensils and water bottles Strep pharyngitis 02/12/2017 Overview (02/22/2017): 8 amox HIVES then Zithromax Immunizations Name Administration Dates Next Due Influenza, Unspecified 04/15/2024(Deferr ed: Patient Refused),04/15/2024(Deferred: Patient Refused),02/16/2023(Deferred: Patient Refused),07/04/2021(Deferred: Patient Refused),06/18/2020(Deferred: Patient Refused) Family History Medical History Relation Name Comments No Known Problems Brother No Known Problems Father No Known Problems Mother Rheum arthritis Sister 1 No Known Problems Sister 2 Relation Name Status Comments Brother Alive Father Alive Mother Alive Sister 1 Alive Sister 2 Alive Social History Tobacco Use Types Packs/Day Years [...] on file Legal Sex Female 2:35 AM MANAGER STRATEGIC SOURCING Gender Identity Not on file Sexual Orientation Not on file Occupation Industry Job Start Date Job End Date [employer] Not on file Not on file Not on file Obstetrics History Para Term AB IAB SAB Ectopic Multiple Livin g Live Births 0 0 0 0 0 0 0 0 0 0 0 Last Filed Vital Signs Vital Sign Reading [...] 04/15/2024 1:25 PM CDT Plan of Treatment Health Maintenance Due Date Last Done Comments Hepatitis C Screening 2002 DTaP/Tdap/Td Vaccine (1 - Tdap) 2013 Varicella Vaccines (1 of 2 - 13+ 2-dose series) 2015 HPV Vaccines (1 - 3-dose series) 2017 Meningococcal B Vaccine (1 of 2 - Patient Seeks Protection) 2018 Hepatitis B Screening 2020 Chlamydia and Gonorrhea (GC/CT) Screening 03/02/2024 03/02/2023, 08/11/2022, 04/12/2021 Influenza Vaccine (#1) 2024 Postp oned from 02/17/2024 (Patient declined, but will receive in the future) Cervical Cancer Screening 03/17/2025 03/17/2024 Regular Well Visit/Exam 18-64 03/17/2025 03/17/2024, 03/02/2023, 07/04/2021, Additional history exists Depression Screening 04/15/2025 04/15/2024, 07/04/19 22 Pneumococcal vaccine <65 Aged Out No longer eligible based on patient's age to complete this topic Procedures Procedure Name Priority Date/Time Associated Diagnosis [...] AM CDT Narrative 03/19/2024 3:49 PM CDT [facility] Department of Pathology [address] [place], [place] [id number] Final Report Note to Patients: This report [...] the details. Patient Name: COLTON MONTAÑO Address: [address] [place] [address]- Gender: F : 2000 (Age: 23) Service: Location: N : [id number] Hospital #: [id number] Patient Type: [facility]H SPECIMEN Taken: 03/17/2024 Received: 03/17/2024 Accessioned:: 03/18/2024 Reported: 03/19/2024 Physician(s): Kerry Heaton D.O. Diagnosis: SOURCE OF SPECIMEN Imaged Thinprep Pap Test w/ Reflex HPV - Side Panel Padder Cytologic Material: STATEMENT OF ADEQUACY - Satisfactory for evaluation; endocervical/transformation zone component present GENERAL CATEGORIZATION: - Negative for intraepithelial lesion or malignancy GABBI Corado(ASCP) Report Electronically Reviewed and Signed Out By GABBI Corado(ASCP) 03/19/2024 15:49:43Specimen(s) Received: A: Imaged Thinprep Pap Test w/ Reflex HPV - Side Panel Padder Cytologic Material Clinical History: Last Menstrual Period: [...] determined by the Surgical Pathology Department at [facility] as part of an ongoing quality technician fiberglass program and in compliance with federally mandated [...] characteristics determined by the Surgical Pathology Department [facility]. It has not been cleared or approved by the U. S. Food and Drug Administration. Eleonora Reese DO LAB CYTOLOGY ORDERABLES Final Result * N. gonorrhoeae/C. trachomatis Amplification Urine (03/02/2023 9:59 AM CDT) C. trachomatis source Urine [facility] C. trachomatis RNA Negative Negative [facility] Comment: ADDITIONAL INFORMATION This report is intended for use in clinical monitoring and management of patients. It is not intended for use in medical-legal applications. N. gonorrhoeae source Urine [facility] N. gonorrhoeae RNA Negative Negative [facility] Comment: ADDITIONAL INFORMATION This report is intended for use in clinical monitoring and management of patients. It is not intended for use in medical-legal applications. Test Performed by: [facility] [place] [id number] [place] [address] Director Organizational: Ruben Coates M.D. Ph.D.; IA# [id number] Urine (None) 03/02/2023 9:59 AM CDT 03/02/2023 1:59 PM CDT Eleonora Reese DO LAB MICROBIOLOGY - GENE [facility] ORDERABLES Final Result Performing Organization Address City/State[place]IP [place] Phone Number EMIL [phone] [facility] [place] [address] from Last 3 Months or Most Recently Relevant to Health Maintenance Insurance [facility] CHOICE PLUS [facility] CHO[facility] PLUS [facility] CHOICE PLUS Care Teams Bottle Selector Relationship Specialty Start Date End [place] [address] PCP - General Family Medicine 07/04/21
--- NOTE | 2024-07-30 12:50 | ED_ITS ---
HPI - URI/Sore Throat General Chief Complaint: Upper Respiratory Infection Stated Complaint: Sore Throat/Fever/Headache Time Seen by Provider: 07/30/24 12:45 Source: patient Mode of arrival: ambulatory Limitations: no limitations History of Present Illness HPI Narrative: 24 year old female presents to [facility] care with complaints of sore throat headache and fevers cough and some congestion which started yesterday. Patient reports that she has taken Theraflu, NyQuil and also tea with honey. Patient reports that she did take some Tylenol this morning at 0915 for her fever. Patient reports history of strep throat. MD elicited complaint: fever, cough, sore throat and other (headache) Pertinent past history: other (strep throat) Onset (ago): day(s) (yesterday) Severity: moderate Able to tolerate fluids by mouth: Yes Exacerbating factors: swallowing Treatments prior to arrival: acetaminophen and other (Theraflu, NyQuil, tea with honey) Related Data Home Medications ?Medication ?Instructions ?Recorded ?Confirmed ?Last Taken ?Type norgestimate 0.25 mg-ethinyl 1 tablet PO DAILY 06/23/21 07/30/24 Unknown History estradiol 35 mcg tablet (Estarylla) Allergies Allergy/AdvReac Type Severity Reaction Status Date / Time amoxicillin Allergy Unknown HIVES Verified 07/30/24 12:22 peanut Allergy Unknown SHORTNESS Verified 07/30/24 12:22 OF BREATH Penicillins Allergy Hives Verified 07/30/24 12:22 Review of Systems Review of Systems: CONSTITUTIONAL: Reports malaise, chills, sweats, or fever. EYES: Denies visual changes, redness, or discharge. ENT: Reports rhinorrhea, congestion, no sinus pain, no otalgia and positive for sore throat. CARDIOVASCULAR: Denies chest pain, palpitations, or edema. RESPIRATORY: Reports cough.? Denies dyspnea. GASTROINTESTINAL: Denies abdominal pain, nausea, vomiting, diarrhea SKIN: Denies rash or itching. MUSCULOSKELETAL:Reports myalgia. NEUROLOGIC: Reports headache. All systems reviewed & are unremarkable except as noted in HPI and below PMFSH Past Medical History Medical History UTI (urinary tract infection) Strep pharyngitis Surgical History Surgical History No pertinent past surgical history Family History Family History Other No significant family history Social History Social History Smoking status: Never smoker Alcohol intake: never Substance use: never Living arrangements: with family Occupation/Education: student Additional occupation/education comments: works at [employer] Gender identity (if verbalized by the patient): Female Comments At time of signature, agree with nursing past medical, surgical, social and family history. There is no relevant family history pertinent to the presenting complaint Exam Narrative: GENERAL: Well-appearing, well-nourished, and in no acute distress. HEAD: Normocephalic EYES: PERRLA, conjunctivae clear ENT: Nares clear, turbinates edematous and erythematous, clear discharge. Mucous membranes moist. TM pearly mendez with dull light reflex bilaterally; no tragal tenderness. Oropharynx erythematous without lesions. Tonsils red enlarged and without exudate, no drooling, no hoarseness, no trismus, uvula midline.post nasal drainage NECK: Supple. lymphadenopathy CHEST: Clear to auscultation, breath sounds equal. No wheezing, rhonchi, rales, or stridor. No respiratory distress, speaks in full sentences.cough noted SAO2 100% on room air HEART: Regular rate and rhythm. No murmur heard. SKIN: Warm, dry, no rash. NEURO: Alert and oriented x3. PSYCH: Normal mood and affect Course Course Emergency Course: Patient is aware of diagnosis, understands and agrees to treatment plan.? Anticipatory guidance given.? Patient agrees to follow-up as directed and is aware of reasons to seek care at the emergency department. Portions of this record may have been created with voice recognition software Level of Care: Express Care Visit Vital Signs Vital signs: Vital Signs Temperature 38.0 C H 07/30/24 12:14 Pulse Rate 126 H 07/30/24 12:14 Respiratory Rate 18 07/30/24 12:14 Blood Pressure 141/86 H 07/30/24 12:14 Pulse Oximetry 100 07/30/24 12:14 Oxygen Delivery Room Air 07/30/24 12:14 Temperature 38.0 C H 07/30/24 12:14 Pulse Rate 126 H 07/30/24 12:14 Respiratory Rate 18 07/30/24 12:14 Blood Pressure 141/86 H 07/30/24 12:14 Pulse Oximetry 100 07/30/24 12:14 Oxygen Delivery Room Air 07/30/24 12:14 Reviewed MDM - URI/Sore Throat MDM Narrative Medical decision making narrative: Differential diagnosis considered: Piper virus, strep pharyngitis, allergic rhinitis, upper respiratory tract infection, sinusitis, rhinosinusitis, nasopharyngitis. viral pharyngitis, otitis media, otitis externa, pneumonia, bronchitis, viral cough syndrome, viral syndrome, and influenza.? Exam findings show no acute concerns or changes; patient is non-toxic appearing and is in no distress.? Patient is appropriate for outpatient treatment and follow-up. Differential Diagnosis Differential diagnosis: Likely upper respiratory infection, sinusitis, viral infection, influenza, pharyngitis and other (strep throat, COVID) Medical Records Attestation: I reviewed the patient's medical records. Lab Data Attestation: I reviewed the patient's lab results. Lab results narrative: Influenza A positive, Influenza B negative, COVID antigen negative, strep screen positive Labs: Lab Results 07/30/24 Range/Units 13:05 POC Influenza A Ag Positive (Negative) POC Influenza B Ag Negative (Negative) POC SARS CoV-2 Ag Negative (Negative) POC Grp A Strep Screen Positive (Negative) reviewed Critical Care Time Critical Care Time Critical Care Time: No Discharge Plan Discharge Clinical Impression: Strep pharyngitis, Influenza A Patient Disposition: Home, Self-Care Condition: Stable Instructions: Antibiotic Form, Strep Throat (ED), Influenza (ED) Additional Instructions: You tested positive for Group A strep . Take the entire course of antibiotics. Throw away your current toothbrush and begin using a new toothbrush in 48 hours in order to prevent re-infection. Sanitize all reusable water bottles . Do not share items with others. Salt water gargles may alleviate some of the throat discomfort. You can take Tylenol or ibuprofen per the package instructions for pain/fever. You tested positive for influenza A You must be fever free for 24 hours without use of Tylenol or ibuprofen before you can return to work Patient Language: Latvian Prescriptions: New clindamycin HCl 300 mg capsule 300 mg PO Q8H 10 Days Qty: 30 0RF No Action norgestimate-ethinyl estradiol [Estarylla] 0.25-35 mg-mcg tablet 1 tablet PO DAILY clindamycin HCl [Cleocin HCl] 300 mg capsule 300 mg PO Q8H 10 Days Qty: 30 0RF Follow-up/Referrals: UNKNOWN,DOCTOR [Primary Care Provider] - Stand Alone Forms: Work/School Release IP Time of Disposition: 13:03 Quality Hollywood Coma Scale Eyes: Open Verbal: Oriented and Alert Motor: Follows Commands Hollywood Coma Total Score: 15
[2024-07-30 13:08] LABS: EDCOVIDSCREEN Negative (Negative); EDINFLUASCREEN Positive (Negative); EDINFLUBSCREEN Negative (Negative); EDSTREPNEGPOS1 Positive (Negative)
== END 2024-07-30 13:11 | disposition home or self-care (01) ==
PROVIDERS: Emergency Provider Registered Nurse
DX: J10.1 Influenza due to other identified influenza virus with other respiratory manifestations (principal); J02.0 Streptococcal pharyngitis; Z20.822 Contact with and (suspected) exposure to COVID-19
CPT/HCPCS: 87426; 87804; 87880; 99213; G0463

== ENCOUNTER 2024-09-04 16:12 | Emergency (ER) | payer OTHER, SELFPAY ==
--- OUTSIDE RECORDS SUMMARY | 2024-09-04 16:14 | XMS_ITS | Referral Summary ---
Author Organization [facility] [address] Address [address] [place] [address] Phone Care Team Providers Care Ultrasound Technol Name Role Phone Aashish Davidson MD Primary Care Provider [phone] Allergies Active Allergy Reactions Criticality Noted Date [...] 07/04/2021 Assessment & Plan (07/04/2021 9:30 AM ELECTRONIC IMAGING SYSTEM OPERATOR): BMI is acceptable for this patient. Encounter for medical examination to establish c are 07/04/2021 Assessment & Plan (07/04/2021 1:00 PM ELECTRONIC IMAGING SYSTEM OPERATOR): Preventive exam; reviewed recommended preventive screenings and [...] proceed. Assessment & Plan (07/04/2021 1:02 PM ELECTRONIC IMAGING SYSTEM OPERATOR): Patient reports strep throat infections occurring every 3-4 months for the past several years. Would like to discuss tonsillectomy, ENT referral placed. Pharyngitis 07/04/2021 Assessment & Plan (07/04/2021 1:06 PM ELECTRONIC IMAGING SYSTEM OPERATOR): Reports ongoing sore throat and fever following strep diagnosis and partial treatment with clindamycin. Will treat with azithromycin and monitor response. Reviewed red flags warranting immediate follow up. -discard toothbrush -sanitize eating utensils and water bottles Strep pharyngitis 02/12/2017 Overview (02/22/2017): 02-12-17 amox HIVES then Zithromax Immunizations Immunization Administration Dates Next Due Influenza, Unspecified 04/15/2024(Deferr [...] on file Legal Sex Female 2:35 AM ELECTRONIC IMAGING SYSTEM OPERATOR Gender Identity Not on file Sexual Orientation [...] AM CDT Narrative 03/19/2024 3:49 PM CDT [facility] Department of Pathology [address] [place] [address] Final Report Note to Patients: This report [...] the details. Patient Name: COLTON MONTAÑO Address: [address] [place] [address]- Gender: F : 2000 (Age: 23) Service: Location: N : [id number] [facility] #: [id number] Patient Type: AMH SPECIMEN Taken: 03/17/2024 Received: 03/17/2024 Accessioned:: 03/18/2024 Reported: 03/19/2024 Physician(s): Kerry Heaton D.O. Diagnosis: SOURCE OF SPECIMEN Imaged Thinprep Pap Test w/ Reflex HPV - Software Applications Developer Cytologic Material: STATEMENT OF ADEQUACY - Satisfactory for evaluation; endocervical/transformation zone component present GENERAL CATEGORIZATION: - Negative for intraepithelial lesion or malignancy GABBI Corado(ASCP) Report Electronically Reviewed and Signed Out By GABBI Corado(ASCP) 03/19/2024 15:49:43Specimen(s) Received: A: Imaged Thinprep Pap Test w/ Reflex HPV - Software Applications Developer Cytologic Material Clinical History: Last Menstrual Period: [...] determined by the Surgical Pathology Department at [facility] as part of an ongoing quality tester program and in compliance with federally mandated [...] determined by the Surgical Pathology Department [facility]. It has not been cleared [...] use in medical-legal applications. Test Performed by: [facility] [place] [address] Tap Builder: Ruben Coates M.D. Ph.D.; CLIA# [id number] Urine (None) 03/02/2023 9:59 AM CDT 03/02/2023 1:59 PM CDT Eleonora Reese DO LAB MICROBIOLOGY - GENE [facility] ORDERABLES Final Result [address] [id number] [address] [place] [address] from Last 3 Months or Most Recently Relevant to Health Maintenance Insurance [facility] CHOICE PLUS [facility] HMO/PPO Address: [address] [address] [place] [address] [facility] CHOICE PLUS [facility] HMO/PPO Address: [address] [address] [place] [address] [facility] CHOICE PLUS [facility] HMO/PPO Address: [address] [address] [place] [address] Care Teams Ultrasound Technol Relationship Specialty Start Date End Date Aashish Davidson MD [address] [place] [address] PCP - General Family Medicine 07/04/21
--- OUTSIDE RECORDS SUMMARY | 2024-09-04 16:14 | XMS_ITS | Encounter Summary ---
Author Organization [facility] Address [address] [place] [address] Phone Care Team Providers Care Concrete Analyst Name Role Phone Mina Arora MD Primary Care Provider [phone] Unknown, Notinfile Primary Care Provider Unavail able Aashish Davidson MD Primary Care Provider [phone] Encounter Details Date Type Department Care Team (Late st Contact Info) Description 05/31/2017 Orders Only [facility] ProviderBenedict MD [address] [place] [address] Social History Tobacco Use Types Packs/Day Years Used Date Smoking Tobacco: Never Assessed Comments Unknown Sex and Gender Information Value Date Recorded Sex Assigned at Not on file Legal Sex Female 2:35 AM ENGINE 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 Historical Provider LAB BLOOD ORDERABLES Lori l Result documented in this encounter Visit Diagnoses Not on filedocumented in this encounter Care Teams Concrete Analyst Relationship Specialty Start Date End Date Mina Arora MD [address] [place] [address] PCP - General 11/03/13 06/29/21 Unknown, Notinfile PCP - General 06/30/21 07/03/21 Aashish Davidson MD [address] [place] [address] PCP - General Family Medicine 07/04/21 documented as of this encounter
--- OUTSIDE RECORDS SUMMARY | 2024-09-04 16:14 | XMS_ITS | Clinical Summary ---
Author Organization [facility] [address] Address [address] [place] [address] Phone Care Team Providers Care Thread Inspector Name Role Phone Aashish Davidson MD Primary Care Provider [phone] Allergies Active Allergy Reactions Criticality Noted Date [...] 07/04/2021 Assessment & Plan (07/04/2021 9:30 AM SUPERVISOR GLYCERIN): BMI is acceptable for this patient. Encounter for medical examination to establish c are 07/04/2021 Assessment & Plan (07/04/2021 1:00 PM SUPERVISOR GLYCERIN): Preventive exam; reviewed recommended preventive screenings and [...] proceed. Assessment & Plan (07/04/2021 1:02 PM SUPERVISOR GLYCERIN): Patient reports strep throat infections occurring every 3-4 months for the past several years. Would like to discuss tonsillectomy, ENT referral placed. Pharyngitis 07/04/2021 Assessment & Plan (07/04/2021 1:06 PM SUPERVISOR GLYCERIN): Reports ongoing sore throat and fever following strep diagnosis and partial treatment with clindamycin. Will treat with azithromycin and monitor response. Reviewed red flags warranting immediate follow up. -discard toothbrush -sanitize eating utensils and water bottles Strep pharyngitis 02/12/2017 Overview (02/22/2017): 8-- amox HIVES then Zithromax Immunizations Immunization Administration [...] on file Legal Sex Female 2:35 AM SUPERVISOR GLYCERIN Gender Identity Not on file Sexual Orientation [...] Meningococcal B Vaccine (1 of 2 - Standard) 2018 Hepatitis B Screening 2020 Chlamydia and [...] AM CDT Narrative 03/19/2024 3:49 PM CDT [facility] Department of Pathology [address] [place], [place] [id number] Final Report Note to Patients: This report [...] the details. Patient Name: COLTON MONTAÑO Address: [address] [place] [address]- Gender: F : 2000 (Age: 23) Service: Location: N : [id number] [facility] #: [id number] Patient Type: AMH SPECIMEN Taken: 03/17/2024 Received: 03/17/2024 Accessioned:: 03/18/2024 Reported: 03/19/2024 Physician(s): Kerry Heaton D.O. Diagnosis: SOURCE OF SPECIMEN Imaged Thinprep Pap Test w/ Reflex HPV - Journeyman Glazier Cytologic Material: STATEMENT OF ADEQUACY - Satisfactory for evaluation; endocervical/transformation zone component present GENERAL CATEGORIZATION: - Negative for intraepithelial lesion or malignancy GABBI Corado(ASCP) Report Electronically Reviewed and Signed Out By GABBI Corado(ASCP) 03/19/2024 15:49:43Specimen(s) Received: A: Imaged Thinprep Pap Test w/ Reflex HPV - Journeyman Glazier Cytologic Material Clinical History: Last Menstrual Period: [...] determined by the Surgical Pathology Department at [facility] as part of an ongoing quality improvement manager program and in compliance with federally mandated [...] characteristics determined by the Surgical Pathology Department [facility]. It has not been cleared or approved by the U. S. Food and Drug Administration. Eleonora Reese DO LAB CYTOLOGY ORDERABLES Final Result * N. gonorrhoeae/C. trachomatis Amplification Urine (03/02/2023 9:59 AM CDT) C. trachomatis source Urine [facility] C. trachomatis RNA Negative Negative [facility] Comment: ADDITIONAL INFORMATION This report is intended for use in clinical monitoring and management of patients. It is not intended for use in medical-legal applications. N. gonorrhoeae source Urine [facility] N. gonorrhoeae RNA Negative Negative [facility] Comment: ADDITIONAL INFORMATION This report is intended for use in clinical monitoring and management of patients. It is not intended for use in medical-legal applications. Test Performed by: [facility] - [address] [address] Food Mixer Assembler: Ruben Coates M.D. Ph.D.; [facility]# [id number] Urine (None) 03/02/2023 9:59 AM CDT 03/02/2023 1:59 PM CDT Eleonora Reese DO LAB MICROBIOLOGY - GENE [facility] ORDERABLES Final Result Performing Organization Address City/State/ZIP Co ri Phone Number EMIL [phone] [facility] Department [place] [address] from Last 3 Months or Most Recently Relevant to Health Maintenance Insurance [facility] CHOICE PLUS [facility] CHOICE PLUS [facility] CHOICE PLUS Care Teams Thread Inspector Relationship Specialty Start Date End Date [place] [address] [address] PCP - General Family Medicine 07/04/21
--- OUTSIDE RECORDS SUMMARY | 2024-09-04 16:14 | XMS_ITS | Encounter Summary ---
Author Organization [facility] Address [address] [place] [address] Phone Care Team Providers Care Sandwich And Drink Cart Operator Name Role Phone Mina Arora MD Primary Care Provider [phone] Unknown, Notinfile Primary Care Provider Unavail able Aashish Davidson MD Primary Care Provider [phone] Encounter Details Date Type Department Care Team (Late st Contact Info) Description 02/22/2017 Orders Only [facility] [address] [place] [address] Sherron Ruiz RN Social History Tobacco Use Types Packs/Day Years Used Date Smoking Tobacco: Never Assessed Comments Unknown Sex and Gender Information Value Date Recorded Sex Assigned at Not on file Legal Sex Female 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
--- OUTSIDE RECORDS SUMMARY | 2024-09-04 16:14 | XMS_ITS | Encounter Summary ---
Author Organization [facility] Address [address] [place] [address] Phone Care Team Providers Care Bench Worker Apprentice Name Role Phone Mina Arora MD Primary Care Provider [phone] Unknown, Notinfile Primary Care Provider Unavail able Aashish Davidson MD Primary Care Provider [phone] Encounter Details Date Type Department Care Team (Late st Contact Info) Description 09/03/2017 Orders Only [facility] ProviderBenedict MD [address] [place] [address] Social History Tobacco Use Types Packs/Day Years Used Date Smoking Tobacco: Never Assessed Comments Unknown Sex and Gender Information Value Date Recorded Sex Assigned at Not on file Legal Sex Female 2:35 AM GRAPE CRUSHER Gender Identity Not on file Sexual Orientation [...] on filedocumented in this encounter Care Teams Bench Worker Apprentice Relationship Specialty Start Date End Date Mina Arora MD [address] [place] [address] PCP - General 11/03/13 06/29/21 Unknown, Notinfile PCP - General 06/30/21 07/03/21 Aashish Davidson MD [address] [place] [address] PCP - General Family Medicine 07/04/21 documented as of this encounter
--- NOTE | 2024-09-04 16:15 | ED_ITS ---
HPI - URI/Sore Throat General Chief Complaint: Upper Respiratory Infection Stated Complaint: sore throat Time Seen by Provider: 09/04/24 16:28 Source: patient, RN notes reviewed and old records reviewed Mode of arrival: ambulatory Limitations: no limitations History of Present Illness HPI Narrative: 24-year-old female presents to the [facility] with a sore throat x1 week. Reports ago or so the last couple of days. Has been using bzwz-wmu-tijtuuc products. Denies any other symptoms Onset (ago): week(s) (1) Related Data Home Medications ?Medication ?Instructions ?Recorded ?Confirmed ?Last Taken ?Type norgestimate 0.25 mg-ethinyl 1 tablet PO DAILY 06/23/21 09/04/24 Unknown History estradiol 35 mcg tablet (Estarylla) Allergies Allergy/AdvReac Type Severity Reaction Status Date / Time amoxicillin Allergy Unknown HIVES Verified 09/04/24 16:28 peanut Allergy Unknown SHORTNESS Verified 09/04/24 16:28 OF BREATH Penicillins Allergy Hives Verified 09/04/24 16:28 Review of Systems Review of Systems: All systems reviewed & are unremarkable except as noted in HPI and below Constitutional: Constitutional: Reports no additional constitutional complaints ENT: Reports as per HPI and Reports sore throat Cardiovascular: Cardiovascular: Reports no additional cardiovascular complaints, Denies chest pain and Denies dyspnea Respiratory: Respiratory: Reports no additional respiratory complaints, Denies chest congestion, Denies cough and Denies dyspnea Musculoskeletal: Musculoskeletal: Reports no additional musculoskeletal complaints Integumentary/Breasts: Skin/Breast: Reports system reviewed and no additional complaints, except as docu PMFSH Past Medical History Medical History UTI (urinary tract infection) Strep pharyngitis Surgical History Surgical History No pertinent past surgical history Family History Family History Other No significant family history Social History Social History Smoking status: Never smoker Alcohol intake: never Substance use: never Living arrangements: with family Occupation/Education: student Additional occupation/education comments: works at [employer] Gender identity (if verbalized by the patient): Female Comments At the time of my signature, I reviewed and agree with the nursing past medical, surgical, social, and family history. There is no relevant family history pertinent to the patient complaint. Exam Const: General: cooperative, healthy appearing, comfortable, no acute distress, well developed, alert and well nourished Nutritional Appearance: well nourished Orientation/consciousness: patient oriented x3 Limitations: no limitations HENMT: Head: normal to inspection Ears: hearing grossly normal bilaterally, external ears normal, TM's normal bilaterally, EAC's normal, mastoids normal, no periauricular adenopathy and Abnormal EAC present Mouth: Yes Normal oral and palatal mucosa present, Yes lip normal, Yes tongue normal and Yes moist mucous membranes Throat: posterior oropharynx normal, tonsils normal, uvula midline and no uvular edema Eyes: General: appearance normal, both eyes and all related structures Alignment and Position: alignment normal Neck: Neck: normal visual inspection, full ROM, no lymphadenopathy and no meningeal signs Chest: Chest palpation & inspection: normal inspection of the chest Resp: Effort & Inspection: normal respiratory effort and able to speak in complete sentences Auscultation: clear to auscultation bilaterally, no crackles, no rales, no rhonchi and no wheezes Cardio: Rate: regular rate Skin: General skin exam: normal color and no rashes or lesions noted Neuro: General: patient oriented x3, gait normal, moves all extremities and no meningeal signs Cognition (Neuro): normal cognition Speech: normal speech Gait exam (Neuro): Normal gait present Extrem: General: normal to inspection, full ROM, capillary refill normal and normal gait Psych: Appearance: grossly normal and well kempt Mental Status: mental status grossly normal Speech and movement: Normal speech and movement present and Clear speech present Affect: normal affect Attitude: cooperative Course Course Level of Care: Express Care Visit Vital Signs Vital signs: Vital Signs Temperature 98.7 F 09/04/24 16:29 Pulse Rate 70 09/04/24 16:29 Respiratory Rate 16 09/04/24 16:29 Blood Pressure 134/66 09/04/24 16:29 Pulse Oximetry 100 09/04/24 16:29 Temperature 98.7 F 09/04/24 16:29 Pulse Rate 70 09/04/24 16:29 Respiratory Rate 16 09/04/24 16:29 Blood Pressure 134/66 09/04/24 16:29 Pulse Oximetry 100 09/04/24 16:29 Reviewed MDM - URI/Sore Throat MDM Narrative Medical decision making narrative: Patient sitting comfortably in exam room. Nontoxic, vitals stable. Patient presents with a sore throat x1 week. No acute findings noted on exam. Patient appropriate for outpatient treatment with close follow-up. Sending culture for strep. Patient requesting that she receive liquid medication if she has to get antibiotics. Patient appropriate for outpatient treatment with close follow-up Discharge instructions reviewed with patient, as well as provided in writing per nursing staff. The instructions also include specific and strict return/GO TO THE ER as well as f/u information. All questions have been answered, and the patient deny any further questions with discharge and discharge plan. Some parts of this dictation were generated by voice recognition software and may contain typographical and/or grammatical inaccuracies. Differential Diagnosis Differential diagnosis: Likely upper respiratory infection, otitis media, sinusitis, viral infection, bronchitis, influenza and pharyngitis Lab Data Labs: Lab Results 09/04/24 Range/Units 16:30 POC Grp A Strep Screen Negative (Negative) Reviewed Critical Care Time Critical Care Time Critical Care Time: No Discharge Plan Discharge Clinical Impression: Pharyngitis Qualifiers: Pharyngitis/tonsillitis etiology: unspecified etiology Qualified Code(s): J02.9 - Acute pharyngitis, unspecified Patient Disposition: Home, Self-Care Condition: Stable Instructions: Pharyngitis (ED) Additional Instructions: Alternate Motrin and Tylenol as needed for pain Use salt water gargles Your rapid strep swab was negative today at [facility]. A throat culture will be sent to the laboratory for further testing. If the test is positive, you will receive a phone call within 48 hours and an appropriate antibiotic will be initiated at that time. -Antihistamine medication such as Zyrtec/Claritin/Norma during the day can help improve symptoms. -doing daily nasal irrigations can help relieve pressure your sinuses. Things like a Neti pot -Use Flonase twice a day for 5 days then daily to help reduce the inflammation and dry up your sinuses. -You can also use Mucinex. Be sure to drink plenty of water with this medication at least 8 ounces with every dose and it is important to drink 8 to 10 glasses of water per day. Water is a natural decongestant -Eat and drink things that are easy to swallow, like tea or soup, or popsicles. -Oral rinses such as: Salt water gargles and/or may use topical anesthetic (eg. Chloraseptic spray) or lozenges to relieve dryness or throat pain). -Frequent hand washing or hand firer marine is one of the best ways to prevent spread of infection. -Using a vaporizer or humidifier at night will also help thin secretions and help with coughing up phlegm. -Follow up with primary care provider in 7-10 days if condition is not improving - For new or worsening symptoms go directly to the nearest ER Patient Language: Iranian Prescriptions: No Action norgestimate-ethinyl estradiol [Estarylla] 0.25-35 mg-mcg tablet 1 tablet PO DAILY Follow-up/Referrals: UNKNOWN,DOCTOR [Non-Staff] - Stand Alone Forms: Work/School Release IP Time of Disposition: 16:40
[2024-09-04 16:29] VITALS: BP 134/66; PULSE 70; RESP 16; TEMP 37.1; O2SAT 100
[2024-09-04 16:41] LABS: EDSTREPNEGPOS1 Negative (Negative)
== END 2024-09-04 16:44 | disposition home or self-care (01) ==
PROVIDERS: Emergency Provider Nurse Practitioner
DX: J02.9 Acute pharyngitis, unspecified (principal)
CPT/HCPCS: 87081; 87880; 99213; G0463

== ENCOUNTER 2025-03-06 12:59 | Emergency (ER) | payer OTHER, SELFPAY ==
--- NOTE | 2025-03-06 13:00 | ED.URI ---
HPI - URI/Sore Throat General Chief Complaint: Upper Respiratory Infection Stated Complaint: sore throat, ear pain Time Seen by Provider: 03/06/25 13:10 Source: patient and RN notes reviewed Mode of arrival: ambulatory Limitations: no limitations History of Present Illness HPI Narrative: 24-year-old female presents concern for sore throat and ear pressure for 1 day. She reports history of strep. She reports intermittent headache. She denies runny nose, stuffy nose, cough, stomach ache, diarrhea. MD elicited complaint: sore throat Related Data Home Medications ?Medication ?Instructions ?Recorded ?Confirmed ?Last Taken ?Type norgestimate 0.25 mg-ethinyl 1 tablet PO DAILY 06/23/21 09/04/24 Unknown History estradiol 0.035 mg tablet (Estarylla) Allergies Allergy/AdvReac Type Severity Reaction Status Date / Time amoxicillin Allergy Unknown HIVES Verified 03/06/25 13:01 peanut Allergy Unknown SHORTNESS Verified 03/06/25 13:01 OF BREATH Penicillins Allergy Hives Verified 03/06/25 13:01 Review of Systems Review of Systems: CONSTITUTIONAL: Denies malaise, chills, sweats, or fever. EYES: Denies visual changes, redness, or discharge. ENT: Reports rhinorrhea, congestion, sinus pain. Reports otalgia and sore throat. CARDIOVASCULAR: Denies chest pain, palpitations, or edema. RESPIRATORY: Denies cough. Denies dyspnea. GASTROINTESTINAL: Denies abdominal pain, nausea, vomiting, diarrhea SKIN: Denies rash or itching. MUSCULOSKELETAL: Denies myalgia. NEUROLOGIC: Reports headache. All systems reviewed & are unremarkable except as noted in HPI and below PMFSH Past Medical History Medical History UTI (urinary tract infection) Strep pharyngitis Surgical History Surgical History No pertinent past surgical history Family History Family History Other No significant family history Social History Social History Smoking status: Never smoker Alcohol intake: never Substance use: never Living arrangements: with family Occupation/Education: student Additional occupation/education comments: works at [employer] general Gender identity (if verbalized by the patient): Female Comments At time of signature, agree with nursing past medical, surgical, social and family history. There is no relevant family history pertinent to the presenting complaint Exam Narrative: GENERAL: Well-appearing, well-nourished, and in no acute distress. HEAD: Normocephalic EYES: PERRLA, conjunctivae clear ENT: Nares clear. Mucous membranes moist. TM pearly mendez with sharp light reflex bilaterally; no tragal tenderness. Oropharynx not erythematous without lesions. Tonsils not enlarged and without exudate, no drooling, no hoarseness, no trismus, uvula midline. NECK: Supple. No lymphadenopathy CHEST: Clear to auscultation, breath sounds equal. No wheezing, rhonchi, rales, or stridor. No respiratory distress, speaks in full sentences. HEART: Regular rate and rhythm. No murmur heard. SKIN: Warm, dry, no rash. NEURO: Alert and oriented x3. PSYCH: Normal mood and affect Course Course Emergency Course: Patient is aware of diagnosis, understands and agrees to treatment plan. Anticipatory guidance given. Patient agrees to follow-up as directed and is aware of reasons to seek care at the emergency department. Portions of this record may have been created with voice recognition software Level of Care: Express Care Visit Vital Signs Vital signs: Reviewed. MDM - URI/Sore Throat MDM Narrative Medical decision making narrative: Differential diagnosis considered: Piper virus, strep pharyngitis, allergic rhinitis, upper respiratory tract infection, sinusitis, rhinosinusitis, nasopharyngitis. viral pharyngitis, otitis media, otitis externa, pneumonia, bronchitis, viral cough syndrome, viral syndrome, and influenza. Exam findings show no acute concerns or changes; patient is non-toxic appearing and is in no distress. Patient is appropriate for outpatient treatment and follow-up. Lab Data Attestation: I reviewed the patient's lab results. Critical Care Time Critical Care Time Critical Care Time: No Discharge Plan Discharge Clinical Impression: Acute streptococcal pharyngitis Patient Disposition: Home Condition: Stable Instructions: Antibiotic Form, Strep Throat (ED) Additional Instructions: -Take the medication as prescribed. Throw away the toothbrush after 24hours of antibiotic. -Eat and drink things that are easy to swallow, like tea or soup, or popsicles to suck on. -Oral rinses such as: Salt water gargles and/or may use topical anesthetic (eg. Chloraseptic spray) or lozenges to relieve dryness or throat pain). -Take Tylenol and ibuprofen as needed for pain and fever as directed. -Frequent hand washing or hand punchboard assembler is one of the best ways to prevent spread of infection. -Follow up with primary care provider in 2-3 days if condition is not improving; or seek ER visit if you have trouble breathing, cannot drink enough fluids, have muffled voice, difficulty opening your mouth, or severe swelling. Patient Language: Bahraini Prescriptions: New cefdinir 300 mg capsule 300 mg PO Q12H 10 Days Qty: 20 0RF No Action norgestimate-ethinyl estradiol [Estarylla] 0.25-35 mg-mcg tablet 1 tablet PO DAILY Follow-up/Referrals: UNKNOWN,DOCTOR [Primary Care Provider] Stand Alone Forms: Work/School Release IP Time of Disposition: 13:18
--- OUTSIDE RECORDS SUMMARY | 2025-03-06 13:02 | XMS_ITS | Encounter Summary ---
Author Organization [facility] Address [address] [place] [address] Phone Care Team Providers Care Rivet Spinner Name Role Phone Mina Arora MD Primary Care Provider [phone] Unknown, Notinfile Primary Care Provider Unavail able Aashish Davidson MD Primary Care Provider [phone] Encounter Details Date Type Department Care Team (Late st Contact Info) Description 02/22/2017 Orders Only [facility] [address] [place] [address] Sherron Ruiz RN Social History Tobacco Use Types Packs/Day Years Used Date Smoking Tobacco: Never Assessed Comments Unknown Sex and Gender Information Value Date Recorded Sex Assigned at Not on file Legal Sex Female 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
--- OUTSIDE RECORDS SUMMARY | 2025-03-06 13:02 | XMS_ITS | Encounter Summary ---
Author Organization [facility] Address [address] [place] [address] Phone Care Team Providers Care Web Engineer Name Role Phone Mina Arora MD Primary Care Provider [phone] Unknown, Notinfile Primary Care Provider Unavail able Aashish Davidson MD Primary Care Provider [phone] Encounter Details Date Type Department Care Team (Late st Contact Info) Description 05/31/2017 Orders Only [facility] ProviderBenedict MD [address] [place] [address] Social History Tobacco Use Types Packs/Day Years Used Date Smoking Tobacco: Never Assessed Comments Unknown Sex and Gender Information Value Date Recorded Sex Assigned at Not on file Legal Sex Female 2:35 AM DRYWALLER Gender Identity Not on file Sexual Orientation Not on file documented as of this encounter Plan of Treatment Not on file documented as of this encounter Procedures Procedure Name Priority Date/Time Associated Diagnosis Comments DISCHARGE LABORATORY CUMULATIVE REPORT 05/31/2017 12:00 AM DRYWALLER documented in this encounter Results * DISCHARGE LABORATORY CUMULATIVE REPORT (05/31/2017 12:00 AM DRYWALLER) Narrative 05/31/2017 12:00 AM DRYWALLER Ordered by an unspecified provider. Historical Provider LAB BLOOD ORDERABLES Lori l Result documented in this encounter Visit Diagnoses Not on filedocumented in this encounter Care Teams Web Engineer Relationship Specialty Start Date End Date Mina Arora MD [address] [place] [address] PCP - General 11/03/13 06/29/21 Unknown, Notinfile PCP - General 06/30/21 07/03/21 Aashish Davidson MD [address] [place] [address] PCP - General Family Medicine 07/04/21 documented as of this encounter
--- OUTSIDE RECORDS SUMMARY | 2025-03-06 13:02 | XMS_ITS | Encounter Summary ---
Author Organization [facility] Address [address] [place] [address] Phone Care Team Providers Care Process Safety Manager Name Role Phone Mina Arora MD Primary Care Provider [phone] Unknown, Notinfile Primary Care Provider Unavail able Aashish Davidson MD Primary Care Provider [phone] Encounter Details Date Type Department Care Team (Late st Contact Info) Description 09/03/2017 Orders Only [facility] ProviderBenedict MD [address] [place] [address] Social History Tobacco Use Types Packs/Day Years Used Date Smoking Tobacco: Never Assessed Comments Unknown Sex and Gender Information Value Date Recorded Sex Assigned at Not on file Legal 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
--- OUTSIDE RECORDS SUMMARY | 2025-03-06 13:02 | XMS_ITS | Clinical Summary ---
Author Organization [facility] [address] Address [address] [place] [address] Phone Care Team Providers Care Career Consultant Name Role Phone Aashish Davidson MD Primary Care Provider [phone] Allergies Active Allergy Reactions Criticality Noted Date [...] 07/04/2021 Assessment & Plan (07/04/2021 9:30 AM SURVEY DIRECTOR): BMI is acceptable for this patient. Encounter for medical examination to establish c are 07/04/2021 Assessment & Plan (07/04/2021 1:00 PM SURVEY DIRECTOR): Preventive exam; reviewed recommended preventive screenings and [...] proceed. Assessment & Plan (07/04/2021 1:02 PM SURVEY DIRECTOR): Patient reports strep throat infections occurring every 3-4 months for the past several years. Would like to discuss tonsillectomy, ENT referral placed. Pharyngitis 07/04/2021 Assessment & Plan (07/04/2021 1:06 PM SURVEY DIRECTOR): Reports ongoing sore throat and fever following [...] on file Legal Sex Female 2:35 AM SURVEY DIRECTOR Gender Identity Not on file Sexual [...] P M CDT Height 162.6 cm (5' 4.02) 04/15/2024 1:25 PM CD T Body Mass [...] 03/02/2024 03/02/2023, 08/11/2022, 04/12/2021 Influenza Vaccine (#1) 2025 Cervical Cancer Screening 03/17/2025 03/17/2024 Regular Well [...] CDT [facility] Department of Pathology [address] [place] [id number] Final Report Note to Patients: This report [...] the details. Patient Name: COLTON MONTAÑO Address: [address] [place] [address]- Gender: F : 2000 (Age: 23) Service: Location: N : [id number] Hospital #: [id number] Patient Type: [facility] SPECIMEN Taken: 03/17/2024 Received: 03/17/2024 Accessioned:: 03/18/2024 Reported: 03/19/2024 Physician(s): Kerry Heaton D.O. Diagnosis: SOURCE OF SPECIMEN Imaged Thinprep Pap Test w/ Reflex HPV - Washer Hand Cytologic Material: STATEMENT OF ADEQUACY - Satisfactory for evaluation; endocervical/transformation zone component present GENERAL CATEGORIZATION: - Negative for intraepithelial lesion or malignancy GABBI Corado(ASCP) Report Electronically Reviewed and Signed Out By GABBI Corado(ASCP) 03/19/2024 15:49:43Specimen(s) Received: A: Imaged Thinprep Pap Test w/ Reflex HPV - Washer Hand Cytologic Material Clinical History: Last Menstrual Period: [...] [facility] as part of an ongoing vice president quality program and in compliance with federally mandated [...] characteristics determined by the Surgical Pathology Department [facility]. It has not been cleared or approved by the U. S. Food and Drug Administration. Eleonora Reese DO LAB CYTOLOGY ORDERABLES Final Result * N. gonorrhoeae/C. trachomatis Amplification Urine (03/02/2023 9:59 AM CDT) C. trachomatis source Urine [facility] C. trachomatis RNA Negative Negative [facility] Comment: ADDITIONAL INFORMATION This report is intended for use in clinical monitoring and management of patients. It is not intended for use in medical-legal applications. N. gonorrhoeae source Urine [facility] N. gonorrhoeae RNA Negative Negative [facility] Comment: ADDITIONAL INFORMATION This report is intended for use in clinical monitoring and management of patients. It is not intended for use in medical-legal applications. Test Performed by: [facility] - [address] [address] School Lunch Manager: Ruben Coates M.D. Ph.D.; CLIA# [id number] Urine (None) 03/02/2023 9:59 AM CDT 03/02/2023 1:59 PM CDT Eleonora Reese DO LAB MICROBIOLOGY - GENE [place] [id number] [facility] Department [place] [address] from Last 3 Months or Most Recently Relevant to Health Maintenance Insurance [facility]/PPO Address: [place] [address] [facility] [employer] [facility]/PPO Address: [address] [address] [place] [address] [facility] [employer] [facility]/PPO Address: [address] [address] [place] [address] Care Teams Career Consultant Relationship Specialty Start Date End [place] [address] PCP - General Family Medicine 07/04/21
[2025-03-06 13:04] VITALS: BP 136/78; PULSE 90; RESP 20; TEMP 37.2; O2SAT 100
[2025-03-06 13:18] LABS: EDSTREPNEGPOS1 Positive (Negative)
== END 2025-03-06 13:27 | disposition home or self-care (01) ==
PROVIDERS: Emergency Provider Nurse Practitioner
DX: J02.0 Streptococcal pharyngitis (principal)
CPT/HCPCS: 87880; 99213; G0463